=== PATIENT | female | born 1990 | race Caucasian/White ===

== ENCOUNTER → 2018-01-08 13:43 | Outpatient (CLI) | payer OTHER, SELFPAY ==
[2018-01-08 18:37] LABS: Chlamydia Trachomatis by PCR Negative (Negative); Neisserai gonorrhoeae by PCR Negative (Negative); Probe Check PASS; Sample Adequacy Control PASS; Specimen Processing Control PASS
[2018-01-15 10:10] LABS: HPV Reflexed? NOT INDICATED
== END ==
PROVIDERS: Visit Provider Obstetrics & Gynecology
DX: Z12.4 Encounter for screening for malignant neoplasm of cervix (principal); Z11.3 Encounter for screening for infections with a predominantly sexual mode of transmission
CPT/HCPCS: 87491; 87591; 88175; G0145

== ENCOUNTER → 2018-01-29 10:56 | Outpatient (CLI) | payer OTHER, SELFPAY ==
[2018-01-29 13:54] LABS: Color, Urine Straw (Yellow); Glucose, Dipstick Normal (Normal); Ketone-Dipstick Negative (Negative); Leukocyte Esterase-Dipstick 500 /ul (Negative); Nitrite-Dipstick Negative (Negative); Occult Blood-Urine 10 /ul (Negative); Protein-Dipstick Negative (Negative); Specific Gravity, Urine 1.005 (1.002-1.030); Urine Bilirubin Dipstick Negative (Negative); Urine Clarity Clear (Clear); Urine Urobilinogen Normal (Normal)
[2018-01-29 14:02] LABS: Absolute Lymphocyte Count 1.78 X10^3/ul (0.83-4.51); Absolute Neutrophil Count 6.3 X10^3/uL (2.0-7.7); Basophil# 0.02 X10^3/uL; Basophil% 0.2 % (0-1); Eosinophil# 0.16 X10^3/uL; Eosinophils% 1.8 % (0-5); Hemoglobin 13.5 g/dl (12.0-15.0); Lymphocyte # 1.78 X10^3/ul (4.0); Lymphocyte % 20.3 % (19-41); Mean Corp Hgb Conc 34.6 g/gl (32-36); Mean Corpuscular Hgb 30.5 pg (27.0-32.0); Mean Corpuscular Volume 88.2 fL (81-99); Mean Platelet Vol. 11.7 fl (6.2-12.0); Monocyte# 0.51 X10^3/uL; Monocyte% 5.8 % (0-10); Neutrophil # 6.29 X10^3/uL (2.7-7.7); Neutrophil % 71.8 % (47-70); Platelet Count 262 K/mm3 (150-450); RBC Distribution Width CV 11.9 % (11.6-14.6); RBC Distribution Width SD 38.1 fl (35.1-43.9); Red Blood Count 4.42 M/mm3 (4.2-5.4); White Blood Count 8.8 K/mm3 (4.4-11.0)
[2018-01-29 14:04] LABS: POSITIVE COUNT NO; POSITIVE DIFFERENTIAL NO; POSITIVE MORPHOLOGY NO
[2018-01-29 14:06] LABS: Amphetamine Urine VISTA NEGATIVE (<1000 ng/mL); Barbiturate Urine VISTA NEGATIVE (< 200 ng/mL); Benzodiazepine Urine VISTA NEGATIVE (< 200 ng/mL); Cocaine Urine VISTA NEGATIVE (< 300 ng/mL); Ecstacy Urine VISTA NEGATIVE (< 500 ng/mL); Methadone Urine VISTA NEGATIVE (< 300 ng/mL); PCP Urine VISTA NEGATIVE (< 25 ng/mL); THC Urine VISTA NEGATIVE (< 50 ng/mL); Vista UDS pH Range 6
[2018-01-29 14:19] LABS: Thyroid Stim Hormone (TSH) 1.32 uIU/mL (0.358-3.74)
[2018-01-29 14:58] LABS: HIV - WCH Non-Reactive (Nonreactive); Rubella IgG 64.5 IU/mL
[2018-01-30 13:57] LABS: HEPATITIS B SURFACE AG Negative (Negative); Hep C Antibodies <0.1 s/co ratio (0.0-0.9)
[2018-02-02 04:35] LABS: Prenatal RPR NONREACTIVE (NONREACTIVE)
== END ==
PROVIDERS: Visit Provider Obstetrics & Gynecology
DX: O23.41 Unspecified infection of urinary tract in pregnancy, first trimester (principal); Z3A.00 Weeks of gestation of pregnancy not specified
CPT/HCPCS: 36415; 80307; 81002; 84443; 85025; 86703; 86762; 86803; 87086; 87088; 87340

== ENCOUNTER → 2018-06-14 11:25 | Outpatient (CLI) | payer OTHER, SELFPAY ==
[2018-06-14 14:19] LABS: Hematocrit 35.9 % (37-47); Hemoglobin 12.4 g/dl (12.0-15.0); Mean Corp Hgb Conc 34.5 g/gl (32-36); Mean Corpuscular Hgb 31.2 pg (27.0-32.0); Mean Corpuscular Volume 90.4 fL (81-99); Mean Platelet Vol. 11.4 fl (6.2-12.0); Platelet Count 220 K/mm3 (150-450); RBC Distribution Width CV 12.6 % (11.6-14.6); Red Blood Count 3.97 M/mm3 (4.2-5.4); White Blood Count 10.8 K/mm3 (4.4-11.0)
[2018-06-14 14:22] LABS: Scan Indicated on CBC? Y/N NO
[2018-06-14 14:23] LABS: Glucose Challenge Gest 1H 50g 120 mg/dL (70-140)
== END ==
PROVIDERS: Visit Provider Obstetrics & Gynecology
DX: Z34.82 Encounter for supervision of other normal pregnancy, second trimester (principal)
CPT/HCPCS: 36415; 82950; 85027; 86850

== ENCOUNTER → 2018-08-13 15:45 | Outpatient (CLI) | payer OTHER, MEDICAID, SELFPAY | PROVIDERS: Visit Provider Obstetrics & Gynecology | DX: Z36.85 Encounter for antenatal screening for Streptococcus B (principal) | CPT/HCPCS: 87081 ==

== ENCOUNTER 2018-09-09 17:55 | Inpatient (IN) | payer OTHER, MEDICAID, SELFPAY ==
[2018-09-09 18:30] VITALS: BMI 34.3
[2018-09-09] MEDS: Lactated Ringers 1,000 ML 50 ML IV ×2 (18:45→23:16)
[2018-09-09 18:52] LABS: Mean Corp Hgb Conc 33.3 g/gl (32-36); Mean Corpuscular Hgb 29.9 pg (27.0-32.0); Mean Corpuscular Volume 89.7 fL (81-99); Mean Platelet Vol. 11.3 fl (6.2-12.0); Platelet Count 182 K/mm3 (150-450); RBC Distribution Width CV 12.8 % (11.6-14.6); RBC Distribution Width SD 41.9 fl (35.1-43.9); Red Blood Count 4.35 M/mm3 (4.2-5.4); Scan Indicated on CBC? Y/N NO; White Blood Count 12.5 K/mm3 (4.4-11.0)
[2018-09-09] MEDS: fentaNYL-bupivacaine (epidural) 100 ML BAG EPIDURAL (22:10)
[2018-09-10] MEDS: Ondansetron 4 MG/2 ML Vial IV (00:15)
[2018-09-10] MEDS: fentaNYL-bupivacaine (epidural) 100 ML BAG EPIDURAL ×2 (02:43→07:12)
[2018-09-10] MEDS: Lactated Ringers 1,000 ML 50 ML IV ×2 (03:08→08:19)
[2018-09-10] MEDS: Mag Hydrox/Al Hydrox/Simeth 30 ML UDC PO (03:13)
--- NOTE | 2018-09-10 04:10 | PCM.PN.BLA ---
Progress Note 40 6/7 wk Spont labor Progressed to complete. SROM at 0305 with thick meconium noted. Test pushes, but with heart burn. Mylanta given and laboring down AVSS Epidural in place, reportedly comfortable. EFM 130-140s avg variability. accels. Intermittent tracing at times. Variable noted with pushing, to 90s UCs q 1-4 mins with coupling and spacing CX; complete A/P: Postdates 40 6/7 with thick meconium stained fluid. EFM reassuring, category I tracing. Laboring down to push. Anticipate Peds, RT at delivery due to meconium.
--- NOTE | 2018-09-10 08:11 | PCM.PN.BLA ---
Progress Note 40 6/7 wk labor Complete since 309 Pushing since 4:30 (approx) EXAM: Vtx OP. No further descent. Thick mec noted EFM 130-140s avg variability accels. reassuring UCs noted A/P: 40 6/7 wk likely CPD. OP Offered to push one more hour and try hands/knees. If no further progress within 1 hr, then to C/S Advised C/S likely. EB
--- NOTE | 2018-09-10 08:42 | PCM.PN.BLA ---
Progress Note ADDENDUM: Late decelerations noted in hand and knees Return to other position(s) to continue pushing. Fetus intolerant of hand/knee position Continue to push for now as planned. scalp lead placed by RN. Likely to proceed with C/S
[2018-09-10] MEDS: Oxytocin 30 units/NS 500 ml 30 UNITS/500 ML IV.SOLN 334 UNITS IV (09:37)
--- NOTE | 2018-09-10 09:46 | PLAC_PTH ---
PATIENT: NAGI GARAY LOC: [facility] U#:[id number] AGE/SX: 27/F ROOM: WP008 RE09/09/[address]: Dr. Carlie Cid MD : 1990 BED: 1 DIS: 09/12/2018 SPEC #: [id number] RECD: 09/10/18 12:32 STATUS: SHE LUIS #: [id number] LAVERN: 09/10/18 09:[address]: Carlie Cid DEPT: SURGICAL PATHOLOGY RECD BY: Reza Dunham ENTERED: 09/10/18 13:59 SP TYPE: PLACENTA OTHR DR: No Primary Care Phys Tissues: Placenta, NOS Procedures: Surgery Specimen Level V HEADER OPERATION: Vaginal delivery PRE-OP DIAGNOSIS: Meconium TISSUE SUBMITTED: Placenta MICROSCOPIC DIAGNOSIS Hunt placenta (525 gm): Umbilical cord - trivascular with acute funisitis. Placental membranes - acute chorioamnionitis and acute deciduitis. Placental disc - Anay dean, mildly increased intraparenchymal fibrin plaques, acute vasculitis of superficial placental vessels. AM:kassidy 09/12/18 MICROSCOPIC DESCRIPTION Slides are reviewed. GROSS DESCRIPTION SPECIMEN: PLACENTA / CLINICAL INFORMATION: A. Weight: 3.635 kg B. Gestational Age: 40 weeks C. Sex: Male PLACENTAL WEIGHT (POST FIXATION): 525 gm PLACENTAL DIMENSIONS: 19 x 19 x 2.8 cm PLACENTAL SHAPE: Usual ovoid PLACENTAL WEIGHT FOR GESTATIONAL AGE: Within 10-99th percentile MEMBRANES - Present A. Insertion: Marginal B. Site of rupture from edge: At edge of placental disc C. Color of membrane: Elizondo-greenish, mucoidy D. Abnormalities: None UMBILICAL CORD - Present A. Color: Elizondo-goodwin B. Insertion: Paracentral C. Length: 36 cm D. Diameter: 1 cm E. Number of vessels: Three F. Abnormalities: None PLACENTAL DISC - Present A. Color of surface: Elizondo-goodwin B. surface abnormalities: None C. Maternal cotyledons: Intact with minimal tears D. Attached retro placental clot: No clot E. Cut surface: Dark red and spongy F. Lesions: None G. Separate clot: Absent SECTIONS SUBMITTED: 1. Membrane roll 2. Cord, maternal end 3. Cord, end 4. Placental disc, and maternal surfaces 5. Placental disc, and maternal surfaces 6. Placental disc, and maternal surfaces, additional membranes SJ:kassidy 09/11/18 TC:2 CPT: 27545
[2018-09-10] MEDS: Oxytocin 30 units/NS 500 ml 30 UNITS/500 ML IV.SOLN 167 UNITS IV (10:07)
[2018-09-10] MEDS: Acetaminophen 500 MG Tablet 1000 MG PO (12:17)
--- NOTE | 2018-09-10 13:03 | PCM.OB.VAG ---
Vaginal Delivery Maternal Presentation: Active Labor 40 5/7 wk UCs. Amniotic Membrane Rupture Type: Spontaneous Amniotic Fluid Description: Thick meconium Final DAVIDA: 09/04/18 Gestational age: 40 Weeks and 6 Days [place] doctor who attended delivery (if requested by OB): Becky Huntley Date of Procedure: 09/10/18 Pre-Operative Diagnosis: 40 6/7 wk labor thick mec Post-Operative Diagnosis: same Surgery/ Procedure Performed: Vacuum Assisted Vaginal Delivery Type of Anesthesia: Epidural Description of Procedure: Complete from 3 am to 8 am and pushing approx 4 hrs. Baby direct OP. thick mec noted. Given option to continue to push but advised needs to go to hands and knees to see if baby will rotate. Went to hands and knees with rocking back on legs. Fetus unable to tolerate position, to pt returned to supine position but with rotation of vtx noted. Scalp lead placed 2/2 late decelerations noted in hands and knees. Went on to push to +1 station. Vacuum assisted vaginal delivery then with single contraction. Pull into the green zone on [place] with three maternal pushes resulted in delivery of VTX. Vacuum removed. OP and nares bulb suctioned. No nuchal cord. Shoulders delivered easily. initially with poor tone and resp effort. Cord clamped x two and cut. Infant then began crying, good tone. to maternal abdomen instead of to Dr Huntley and RT present for delivery. Routine cord blood and gases collected. PP exam: 2nd deg vaginal laceration noted, repaired under epidural to hemostatic and intact with 3-0 Vicryl Rapide. No other lacerations noted. Placenta delivered by spont expulsion, expression. Thick mec stained and sent to lab for evaluation. 3V cord, normal appearing, intct with trailing membranes. Pt and tolerated delivery well. Infant Ap 8/9 EBL 350 cc Ray Uli counts correct x two. Presentation: Vertex, FRANNY Placental Delivery Description: Spontaneous, Expressed Placenta Disposition: Sent to Pathology Cord Vessel Description: 3 Vessels Cord Gases drawn per routine: ABG, VBG Cord Entanglement: None Drain: Lorenzo to straight drain Estimated Blood Loss: 350 A gender: Male (1 minute): 8 (5 minute): 9 Episiotomy Description: None Laceration: Midline, Vaginal Extension/lac, 2nd degree Medications given after delivery: IV Pitocin Complications: None
--- NOTE | 2018-09-10 13:13 | PCM.DCVAG ---
Discharge Diet: No Restrictions Discharge Activity: May Shower, May Take a Tub Bath Return to work on:: 10/22/18 May resume sexual activity in: 4-6 weeks Additional Activity Instructions:: Nothing in the vagina for 4-6 weeks. You may return to work/school in 6 weeks. Additional Instructions: If you experience any of the following, contact your healthcare provider. Bleeding that soaks a pad every hour for 2 hours Fever 100.4 or higher Unrelieved abdominal pain Problems urinating (including inability to urinate or burning while urinating). Visual changes Severe headache Flu-like symptoms Pain or redness in one of both of your breasts Pain, warmth, tenderness or swelling in your legs, especially the calf area Frequent nausea and vomiting Symptoms of depression or anxiety If you experience any of the following, call 911 or go to the nearest Emergency Room. Chest pain Problems breathing Seizure activity Partial or complete paralysis of a body part, slurred speech, weakness or drooping of the face, or a sudden inability to walk or hold your balance Allergies/Adverse Reactions: Allergies amoxicillin Allergy (Verified 09/09/18 18:32) Rash Medications to take at Discharge Formula Tablet 1 tab PO DAILY 09/09/18 Please Follow Up With: Carlie Cid MD - [phone] When: Call to make an appointment with your doctor in 6 weeks. Primary Care Physician: Care Physician,No Primary [Primary Care Provider] - Test Results: Test results from this visit will be discussed in further detail at your follow-up appointment, if applicable. Proposed Discharge Date: 09/12/18
--- NOTE | 2018-09-10 13:14 | DCINST_ITS ---
Discharge Diet: No Restrictions Discharge Activity: May Shower, May Take a Tub Bath Return to work on:: 10/22/18 May resume sexual activity in: 4-6 weeks Additional Activity Instructions:: Nothing in the vagina for 4-6 weeks. You may return to work/school in 6 weeks. Additional Instructions: If you experience any of the following, contact your healthcare provider. * Bleeding that soaks a pad every hour for 2 hours * Fever 100.4 or higher * Unrelieved abdominal pain * Problems urinating (including inability to urinate or burning while urinating). * Visual changes * Severe headache * Flu-like symptoms * Pain or redness in one of both of your breasts * Pain, warmth, tenderness or swelling in your legs, especially the calf area * Frequent nausea and vomiting * Symptoms of depression or anxiety If you experience any of the following, call 911 or go to the nearest Emergency Room. * Chest pain * Problems breathing * Seizure activity * Partial or complete paralysis of a body part, slurred speech, weakness or drooping of the face, or a sudden inability to walk or hold your balance Allergies/Adverse Reactions: Allergies amoxicillin Allergy (Verified 09/09/18 18:32) Rash Medications to take at Discharge Formula Tablet 1 tab PO DAILY 09/09/18 Please Follow Up With: Carlie Cid MD - [phone] When: Call to make an appointment with your doctor in 6 weeks. Primary Care Physician: Care Physician,No Primary [Primary Care Provider] - Test Results: Test results from this visit will be discussed in further detail at your follow- up appointment, if applicable. Proposed Discharge Date: 09/12/18
[2018-09-10 16:00] VITALS: BP 116/70; PULSE 70; RESP 16; TEMP 36.7
[2018-09-10 19:55] VITALS: BP 108/51; PULSE 96; RESP 16; TEMP 36.6; O2SAT 95
[2018-09-10 23:40] VITALS: BP 115/64; PULSE 91; RESP 16; TEMP 36.4; O2SAT 96
[2018-09-11 03:40] VITALS: BP 103/55; PULSE 83; RESP 16; TEMP 36.6; O2SAT 95
[2018-09-11 06:07] LABS: Hemoglobin 11.5 g/dl (12.0-15.0); Mean Corp Hgb Conc 32.9 g/gl (32-36); Mean Corpuscular Hgb 29.9 pg (27.0-32.0); Mean Corpuscular Volume 90.9 fL (81-99); Mean Platelet Vol. 11.4 fl (6.2-12.0); Platelet Count 180 K/mm3 (150-450); RBC Distribution Width CV 12.6 % (11.6-14.6); RBC Distribution Width SD 41.4 fl (35.1-43.9); Red Blood Count 3.85 M/mm3 (4.2-5.4); White Blood Count 14.6 K/mm3 (4.4-11.0)
[2018-09-11 06:22] LABS: Scan Indicated on CBC? Y/N NO
[2018-09-11 07:50] VITALS: BP 111/67; PULSE 81; RESP 16; TEMP 36.4; O2SAT 96
--- NOTE | 2018-09-11 08:21 | PCM.PN.OB ---
Subjective: PPD#1 after 5 1/2 hr pushing Doing well. Nursing. Baby is sleeping a lot. Pain control adequate. no concerns voiced. - Physical Exam General: Alert, Oriented x3, Cooperative, No apparent distress HEENT: Atraumatic Neck: Supple Neurological: Cranial nerves II-XII grossly intact Psych/Mental Status: Normal Affect Vital Signs Temp Pulse Resp BP Pulse Ox 97.8 F 83 16 103/55 L 95 09/11/18 03:40 09/11/18 03:40 09/11/18 03:40 09/11/18 03:40 09/11/18 03:40 Oxygen Delivery Method Room Air Weight: 90.775 kg Body Mass Index (BMI) 34.3 Intake and Output for Last 24 Hours 09/09/18 09/10/18 09/11/18 23:59 23:59 23:59 Intake Total 4952 / 4952 Output Total 6050 / 6050 Balance -1098 / -1098 Laboratory Tests Past 24 Hrs 09/11/18 05:50 WBC 14.6 H RBC 3.85 L Hgb 11.5 L Hct 35.0 L MCV 90.9 MCH 29.9 MCHC 32.9 RDW 12.6 RDW Differential 41.4 Plt Count 180 MPV 11.4 Medical Necessity - Tobacco Use Smoking Status: Never smoker Assessment/Plan PPD#1 Prolonged second stage Doing well. Continue care. Assist with nursing prn. Plans circumcision today.
[2018-09-11 13:55] VITALS: BP 110/57; PULSE 90; RESP 16; TEMP 36.5
[2018-09-11 19:45] VITALS: BP 105/65; PULSE 96; RESP 16; TEMP 36.2; O2SAT 96
[2018-09-12 01:35] VITALS: BP 100/52; PULSE 85; RESP 16; TEMP 36.5; O2SAT 100
--- NOTE | 2018-09-12 08:22 | PCM.PN.OB ---
Subjective: PPD#2 Prolonged second stage Doing well. States nursing well. Baby just slept for two hours and she was also able to rest. No concerns voiced and plans to go home today. - Physical Exam General: Alert, Oriented x3, Cooperative, No apparent distress HEENT: Atraumatic Neck: Supple Abdomen: Soft - Fundus firm NT at just below umbilicus Neurological: Cranial nerves II-XII grossly intact Psych/Mental Status: Normal Affect Vital Signs Temp Pulse Resp BP Pulse Ox 97.7 F L 85 16 100/52 L 100 09/12/18 01:35 09/12/18 01:35 09/12/18 01:35 09/12/18 01:35 09/12/18 01:35 Oxygen Delivery Method Room Air Weight: 90.775 kg Body Mass Index (BMI) 34.3 Intake and Output for Last 24 Hours 09/10/18 09/11/18 09/12/18 23:59 23:59 23:59 Intake Total 4952 / 4952 Output Total 6050 / 6050 Balance -1098 / -1098 Medical Necessity - Tobacco Use Smoking Status: Never smoker Assessment/Plan PPD#2 Prolonged second stage Doing well. Discharge home. RTO in 6 wk for pp check.
[2018-09-12 08:30] VITALS: BP 124/55; PULSE 80; RESP 18; TEMP 36.6
[2018-09-13 08:54] LABS: Pathology Specimen OB SEE PATHOLOGY REPORT
== END 2018-09-12 10:35 | disposition home or self-care (01) | DRG 807 ==
PROVIDERS: Admitting Provider Obstetrics & Gynecology; Referring Provider Obstetrics & Gynecology; Visit Provider Obstetrics & Gynecology
DX: O76 Abnormality in fetal heart rate and rhythm complicating labor and delivery (principal); Z37.0 Single live birth; O48.0 Post-term pregnancy; O42.02 Full-term premature rupture of membranes, onset of labor within 24 hours of rupture; O63.1 Prolonged second stage (of labor); O77.0 Labor and delivery complicated by meconium in amniotic fluid; O70.1 Second degree perineal laceration during delivery; O99.52 Diseases of the respiratory system complicating childbirth; J45.909 Unspecified asthma, uncomplicated; O99.62 Diseases of the digestive system complicating childbirth; K21.9 Gastro-esophageal reflux disease without esophagitis; Z3A.40 40 weeks gestation of pregnancy
CPT/HCPCS: 59050; 85027; 86850; 86900; 88307; 99218; J7120; G0378; J2405

== ENCOUNTER 2018-09-28 14:40 | Outpatient (CLI) | payer OTHER, MEDICAID, SELFPAY | END 2018-09-28 15:15 | disposition home or self-care (01) | LOC: WPOUT 14:44 → WP 14:44 | PROVIDERS: Referring Provider Obstetrics & Gynecology; Visit Provider Obstetrics & Gynecology | DX: Z39.1 Encounter for care and examination of lactating mother (principal) | CPT/HCPCS: 96152 ==

== ENCOUNTER 2021-10-18 15:10 | Outpatient (CLI) | payer OTHER, SELFPAY ==
[2021-10-25 14:58] LABS: HPV Reflexed? NOT INDICATED
== END 2021-10-18 23:59 | disposition home or self-care (01) ==
LOC: LABSPEC 15:13
PROVIDERS: Visit Provider Student in an Organized Health Care Education/Training Program
DX: Z12.4 Encounter for screening for malignant neoplasm of cervix (principal)
CPT/HCPCS: 88175; G0145

== ENCOUNTER 2025-01-09 18:08 | Emergency (ER) | payer OTHER, SELFPAY ==
[2025-01-09 18:09] VITALS: BP 139/106; PULSE 85; RESP 22; TEMP 36; O2SAT 98
[2025-01-09 18:52] LABS: Hematocrit 43.7 % (37-47); Hemoglobin 14.4 g/dL (12.0-15.0); Immature Granulocytes Count 0.040 X10^3/uL (0.0-0.0); Mean Corp Hgb Conc 33.0 g/dL (32-36); Mean Corpuscular Volume 89.4 fL (81-99); Mean Platelet Vol. 11.9 fl (6.2-12.0); NRBC Flagged by Analyzer 0 % (0-5); Platelet Count 204 K/mm3 (150-450); RBC Distribution Width CV 11.9 % (11.6-14.6); RBC Distribution Width SD 38.5 fl (35.1-43.9); Red Blood Count 4.89 M/mm3 (4.2-5.4); White Blood Count 8.6 K/mm3 (4.4-11.0)
--- NOTE | 2025-01-09 19:01 | CT_ITS ---
PROCEDURE: ABDOMEN/PELVIS WITHOUT CONT 01/09/2025 REASON FOR EXAM: RIGHT FLANK PAIN TECHNIQUE: ABDOMEN/PELVIS WITHOUT CONT Noncontrast technique limits evaluation of the abdominal and pelvic viscera. Coronal and Sagittal reconstruction series were provided. One or more dose reduction techniques were used (e.g., Automated exposure control, adjustment of the mA and/or kV according to patient size, use of iterative reconstruction technique). FINDINGS: Noncontrast CT of the liver and spleen are unremarkable. Normal appearance of the gallbladder. Nonobstructing stone lower pole left kidney measures 6 mm There is right-sided hydronephrosis and there is extensive dilatation of the right ureter. This extends down towards the UVJ where there is a prominent obstructing stone measuring 9 mm. No free fluid or mass. No bowel obstruction. No abdominal aneurysm. CT/Abdomen/Pelvis without Cont IMPRESSION: 9 mm stone at the right UVJ producing hydroureter and hydronephrosis. Nonobstr ucting stone on the left. Reading Location: [facility]
--- NOTE | 2025-01-09 19:02 | ED.VIS.GI ---
HPI HPI - GI History of Present Illness Chief Complaint: Abd Pain Informant: patient and spouse/S.O. Narrative Narrative: 34-year-old healthy female sudden onset severe lower abdominal pain couple hours prior to arrival associated with nausea and vomiting no hematemesis. She states the pain is also across her lower abdomen, it is on both sides in the midline, it seems to be worse in the right and into the right flank. She is never had any pain like this before. She is currently on her menstrual cycle they have been regular, she sometimes gets some mild pelvic cramping with her menstrual cycle and this feels completely different. She has no history of ovarian cyst that she knows of, no history of kidney stones, no history of any abdominal surgeries in the past. no recent fall or injury. PFSH PFSH Medical History no medical history Home Medications ?Medication ?Instructions ?Recorded ?Last Taken ?Type ondansetron 8 mg disintegrating 8 mg PO Q8H PRN nausea and 01/09/25 Unknown Rx tablet vomiting #12 tabs oxycodone-acetaminophen 5 mg-325 1 tab PO Q4H PRN PRN Pain 4 days 01/09/25 Unknown Rx mg tablet #20 TABLETS tamsulosin 0.4 mg capsule 0.4 mg PO DAILY #7 caps 01/09/25 Unknown Rx Allergy/AdvReac Type Severity Reaction Status Date / Time amoxicillin Allergy Rash Verified 01/09/25 18:09 Social History Smoking Status: Never smoker ROS ROS ED Constitutional Constitutional ED: Denies chills or fever(s) Eyes Eyes: Denies change in vision or diplopia ENT ENT ED: Denies rhinorrhea or sore throat Cardiovascular Cardiovascular: Denies chest pain or palpitations Respiratory/Chest Respiratory/Chest: Denies cough or dyspnea Gastrointestinal Gastrointestinal: Reports abdominal pain, nausea and vomiting; Denies diarrhea Genitourinary Genitourinary ED: Denies dysuria, hematuria or urinary frequency Musculoskeletal Musculoskeletal: Reports back pain; Denies neck pain Integumentary Denies abscess or rash Neurologic Neurologic: Denies headache(s), paresthesias or weakness Psychiatric Psychiatric: Denies suicidal thoughts EXAM Physical Exam Const Vital Signs: 01/09/25 18:09 01/09/25 19:15 01/09/25 20:28 Temperature 96.8 F L Temperature Source Temporal Pulse Rate 85 78 Respiratory Rate 22 H 22 H 16 Blood Pressure 139/106 H Blood Pressure Mean 117 Pulse Ox 98 100 Oxygen Delivery Method Room Air Room Air 01/09/25 21:09 01/09/25 22:29 Temperature Temperature Source Pulse Rate 87 88 Respiratory Rate 19 H 16 Blood Pressure 129/70 H 106/83 H Blood Pressure Mean 89 90 Pulse Ox 100 100 Oxygen Delivery Method Room Air Room Air Positive well nourished and well developed Constitutional Narrative: Rolling around in the bed and painful distress. Keenly alert, cooperative. General Appearance ED: well developed HEENT Reports moist mucous membranes normocephalic and atraumatic Eyes PERRL and EOMs intact bilaterally Neck full ROM and supple Resp normal respiratory effort and clear to auscultation bilaterally Cardio regular rate, regular rhythm and no murmurs GI non-distended GI Narrative: Tender in the right lower quadrant diffuse including the pelvis and also in the right mid flank. No right upper quadrant or epigastric tenderness. No significant left sided abdominal/flank tenderness. Auscultation: normoactive bowel sounds Palpation: soft Back/Spine General Back: CVA tenderness right (Normal inspection no rash) and other FROM Extremity normal to inspection General Extremety ED: Negative for edema, pulses abnormal or tenderness General Extremity: Negative for edema or pulses abnormal Neuro oriented x3, CN's II-XII intact bilaterally and no sensory deficits noted Sensorium / Orientation: awake and alert Motor Exam: strength 5/5 throughout Psych Mood & Affect: anxious Skin no rashes or lesions noted and no wounds MDM MDM MDM Narrative Medical decision making narrative: Vital signs are normal patient does appear to be in acute pain and agrees that it started suddenly severe. Although she has some pain bilaterally, the majority of the pain and tenderness seems to be on the right including the flank, a kidney stone could explain this. Given that she states this is completely different than menstrual-type pain, my suspicion is less for an ectopic or torsion although considering those as well but starting with a CT after her returns if negative. was negative, she was sent for CT. The rest of the labs are normal including urinalysis which came back later with a trace amount of blood, it took her a while to provide us a specimen, I reviewed the CT images as well as the report which I agree with. It shows a large 9 mm right UVJ obstructing stone with hydroureter and hydronephrosis which explains her pain, as well as a nonobstructing 6 mm left renal stone. She was here for a while waiting to give a urine specimen and for urinalysis to result, but in that time she did need 1 other dose of pain medication but her pain was well-controlled with these medications. Her vital signs are normal she is not febrile and there is no sign of infection on the urinalysis. We do not have urology available at this time, and she has never seen a urologist that she is established with. I advised the patient she is likely to need urologic help to get this stone removed. I am going to place her on tamsulosin to see if that helps since it is UVJ and large, in addition to analgesics, and Zofran, and at length I discussed return precautions with significant other and her, including signs and symptoms of intractable symptoms, infection, sepsis etc. They are comfortable with that plan. Lab Data Attestation: I reviewed the patient's lab results. Labs: Laboratory Results - last 24 hr 01/09/25 01/09/25 18:25 21:05 WBC 8.6 RBC 4.89 Hgb 14.4 Hct 43.7 MCV 89.4 MCH 29.4 MCHC 33.0 RDW Std Deviation 38.5 RDW Coeff of Monika 11.9 Plt Count 204 MPV 11.9 Immature Gran % (Auto) 0.500 Neut % (Auto) 62.8 Lymph % (Auto) 26.8 [place] % (Auto) 6.3 Eos % (Auto) 2.9 Baso % (Auto) 0.7 Absolute Neuts (auto) 5.4 Absolute Lymphs (auto) 2.30 Nucleated RBC % 0 Sodium 137 Potassium 4.3 Chloride 107 Carbon Dioxide 17.1 L Anion Gap 14 BUN 13 Creatinine 1.01 Estim Creat Clear Calc 87.99 Est GFR (MDRD) Non-Af 76 BUN/Creatinine Ratio 13.3 Glucose 115 H Calcium 9.3 Total Bilirubin 1.19 AST 31 ALT 18 Alkaline Phosphatase 61 Total Protein 7.5 Albumin 4.2 Globulin 3.3 Albumin/Globulin Ratio 1.3 Lipase 23 Serum , Qual NEGATIVE Urine Color Yellow Urine Clarity Clear Urine pH 6.0 Ur Specific [place] 1.025 Urine Protein 30 H Urine Glucose (UA) Normal Urine Ketones Negative Urine Occult Blood 10 H Urine Nitrite Negative Urine Bilirubin Negative Urine Urobilinogen Normal Ur Leukocyte Esterase Negative Urine RBC 0-5 SEEN Urine WBC 0-5 SEEN Ur Squamous Epith Cells 0-5 SEEN Urine Bacteria 1+ Urine Mucus 0 SEEN Radiography Diagnostic Testing: Clinical Impression(s) from Imaging Studies Abdomen/Pelvis CT 01/09/25 19:01 IMPRESSION: 9 mm stone at the right UVJ producing hydroureter and hydronephrosis. Nonobstructing stone on the left. Reading Location: [facility] Discharge Plan Triage Chief Complaint: Abd Pain ED Provider: Alexis Duff Dx/Rx/DC Orders Clinical Impression: Ureterolithiasis, Renal colic on right side, Left nephrolithiasis Instructions: ED Urine Strainer, ED Kidney Stone with Pain Prescriptions: New ondansetron 8 mg tablet,disintegrating 8 mg PO Q8H PRN (Reason: nausea and vomiting) Qty: 12 0RF oxycodone-acetaminophen 5-325 mg tablet 1 tab PO Q4H PRN PRN (Reason: Pain) 4 Days Qty: 20 0RF tamsulosin 0.4 mg capsule 0.4 mg PO DAILY Qty: 7 0RF Primary Care Provider: Care Physician,No Primary Referrals: Radha Carey MD [Med Staff - Active Staff] - As soon as possible Activity Restrictions/Additional Instructions: You have a right-sided 9 mm stone that is stuck in the ureter, causing your pain. There is a 6 mm stone in your left kidney that is not causing any pain or problems right now. One of your prescriptions is for tamsulosin. This is a once a day medication that may help you pass the stone sooner in some specific scenarios including yours, given the size of the stone and the location that it is stuck in. Strain your urine every time you urinate. If you pass the stone you will see a pebble in the strainer, and your pain should begin improving go away within the next few hours. You may then stop taking the tamsulosin if that occurs. Print Language: Upper Sorbian Disposition Disposition: Home, Self Care
[2025-01-09] MEDS: Ketorolac 30 MG/ML Syringe IV (19:14)
[2025-01-09 19:15] VITALS: RESP 22; BMI 34.7
[2025-01-09 19:38] LABS: AST(SGOT) 31 U/L (<=31); Alanine Aminotransfer ALT/SGPT 18 U/L (<=34); Albumin, Serum 4.2 g/dL (3.5-5.0); Alkaline Phosphatase 61 U/L (35-104); Anion Gap 14 (5-15); BUN 13 mg/dL (4-19); BUN/Creat Ratio 13.3 RATIO (10-20); Calcium,Total 9.3 mg/dL (7.6-11.0); Carbon Dioxide 17.1 mmol/L (21.0-32.0); Chloride 107 mmol/L (98-108); Estimated Creatinine Clearance 87.99 ml/min (50-250); Globulin 3.3 g/dL (2.2-4.2); Glucose 115 mg/dL (70-99); Lipase 23 U/L (13-75); Potassium 4.3 mmol/L (3.3-5.1)
[2025-01-09 19:46] LABS: Internal QC Validated? YES +Cl - CLEAR BKGD; Pregnancy, Serum, hCG Quali. NEGATIVE Negative; Record Kit Lot#, Serum Preg. 947241
[2025-01-09 20:28] VITALS: PULSE 78; RESP 16; O2SAT 100
--- NOTE | 2025-01-09 20:49 | CM.ED ---
Social work Reason for referral: no PCP Referral source: case find SW entered patient's room, introducing self and role at [facility]. Patient was asleep in bed, but patient's , Igor, was bedside. SW left resources ([facility] Provider Directory and Keerthi Rolon information) with patient's . Patient's declined further needs at this time. Fariha Gomes, [employer] CONSULTING ARCHITECT, S[employer]ER
[2025-01-09 21:09] VITALS: BP 129/70; PULSE 87; RESP 19; O2SAT 100
[2025-01-09 21:16] LABS: Mucous, Urine 0 SEEN /hpf (<or=2+)
[2025-01-09 22:27] LABS: Color, Urine Yellow (Yellow); Glucose, Dipstick Normal (Normal); Ketone-Dipstick Negative (Negative); Leukocyte Esterase-Dipstick Negative /ul (Negative); Nitrite-Dipstick Negative (Negative); Occult Blood-Urine 10 /ul (Negative); Protein-Dipstick 30 mg/dl (Negative); Specific Gravity, Urine 1.025 (1.002-1.030); Urine Bilirubin Dipstick Negative (Negative)
[2025-01-09 22:29] VITALS: BP 106/83; PULSE 88; RESP 16; O2SAT 100
[2025-01-09 22:38] LABS: Red Blood Cells-Urine 0-5 SEEN /hpf (0-5); Squamous Epithelial Cells - UA 0-5 SEEN /hpf (5-10)
[2025-01-09 23:00] VITALS: BP 106/83; PULSE 88; RESP 16; TEMP 36.6; O2SAT 100
== END 2025-01-09 23:40 | disposition home or self-care (01) ==
PROVIDERS: Emergency Provider Emergency Medicine; Referring Provider Emergency Medicine; Visit Provider Emergency Medicine
DX: N13.2 Hydronephrosis with renal and ureteral calculous obstruction (principal); N23 Unspecified renal colic
CPT/HCPCS: 74176; 80053; 81001; 83690; 84703; 85025; 96374; 96375; 96376; 99283; A4216; J2405